=== PATIENT | male | born 2005 ===

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

== ENCOUNTER 2025-02-15 00:54 | Emergency (ER) | payer BC, MEDICAID, SELFPAY ==
[2025-02-15 00:54] VITALS: BP 102/77; PULSE 64; RESP 16; TEMP 36.4; O2SAT 94; BMI 34.7
--- NOTE | 2025-02-15 01:04 | ED_ITS ---
HPI - Altered Mental Status 2 General: Chief Complaint: Altered Mental Status Stated Complaint: AMS Time Seen by Provider: 02/15/25 00:54 Source: family and EMS Mode of arrival: EMS History of Present Illness: 19-year-old male has a history of TBI fr om a football injury 5 years ago. Per family patient denied was helped to the bathroom and then found him down unresponsive. He does have a history of seizures as well family states he is now back to his baseline. He is nonverbal but does moan and does respond. He was able to lift his left arm and left leg when I asked him to. He has right sided deficits from his previous injuries. Family did not witness the seizure but states this is how he is active before. He states has had some generalized weakness has gotten worse over the last few months denies any fever vomiting Related Data Previous Rx's ?Medication ?Instructions ?Recorded albuterol sulfate 90 mcg/actuation 2 inh inhalation Q6 H PRN shortness 03/16/22 aerosol inhaler of breath or wheezing #8.5 g kalyani Allergies Allergy/AdvReac Type Severity Reaction Status Date / Time No Known Allergies Allergy Verified 11/16/19 08:37 [facility] ED 2 PFSH: Medical History No pertinent family history Surgical History No pertinent past surgical history Social History Smoking and tobacco/nicotine status: never used tobacco/nicotine Physical Exam 2 Const: COMMON NORMALS: no acute distress; negative for patient oriented x3 HENMT: COMMON NORMALS: normocephalic and atraumatic HEAD & SCALP: n ormocephalic and atraumatic Eye: COMMON NORMALS: Equal, round and reactive pupils present and EOMs intact bilaterally PUPIL: Yes Equal, round and reactive pupils present Neck/C-Spine: COMMON NORMALS: supple Chest: COMMONS NORMALS: normal inspection of the chest Resp: COMMON NORMALS: normal respiratory effort and clear to auscultation bilaterally AUSCULTATION: clear to auscultation bilaterally Cardio: COMMON NORMALS: regular rate and regular rhythm RATE: regular rate RHYTHM: regular rhythm GI: COMMON NORMALS: Normal to inspection, nondistended, normoactive bowel sounds present, Soft to palpation and non-tender PALPATION: Yes Soft to palpation Extremity: COMMON NORMALS: normal to inspection Neuro: COMMON NORMALS: negative for patient oriented x3 CRANIAL NERVES: Yes CN normal except as noted OTHER: Patient currently at his baseline he does raise his left arm and leg when I ask him to he was able to fist bump when I asked. He is smiling on command. Does have right sided deficits that are old and unchanged Course 2 Vital Signs: Vital signs: Vital Signs Temperature 97.6 F 02/15/25 00:54 Pulse Rate 61 02/15/25 01:26 Respiratory Rate 12 02/15/25 01:26 Blood Pressure 106/67 02/15/25 01:26 Pulse Oximetry 94 02/15/25 01:26 Oxygen Delivery Me thod Room Air 02/15/25 00:54 MDM - Altered Mental Status Medical Decision Making Patient presents here with. Altered male status possibly had a seizure. Ever since has been here has been in his baseline in no acute distress no fever he has no signs of any infection or meningitis blood work is normal head CT showed no acute findings he has no signs of stroke here I did go over all these findings with his mother he is stable for discharge he does have a follow-up with his neurologist on February 21 he is to follow-up as scheduled return if worsening she understands agrees to plan Medical Records I reviewed the patient's medical records. Lab Data I reviewed the patient's lab results. 02/15/25 01:42 02/15/25 01:[address] 02/15/25 01:04 IMPRESSION: 1. Severe parenchymal volume loss/encephalomalacia of the left cerebral hemisphere with corresponding ventriculomegaly. Findings are favored to represent sequela of age-indeterminate, chronic appearing, large vascular territory infarct. Correlate with patient history. If clinical concern for acute ischemic pathology is present, MRI brain without contrast is warranted. 2. Postoperative changes from left frontoparietal craniotomy. Small crescent of hyperattenuation in the surgical bed favored to represent chronic postoperative exchange trouble shooter acute epidural hemorrhage. Correlate with patient history. 3. Otherwise, no acute intracranial hemorrhage. Laboratory Results WBC 6.72 10^3/uL (4.5-13.0) 02/15/25 01:42 RBC 5.14 10^6/uL (3.85-5.65) 02/15/25 01:42 Hgb 15.10 g/dL (13.2-15.6) 02/15/25 01:42 Hct 44.1 % (37-53) 02/15/25 01:42 MCV 85.8 fl (82-101) 02/15/25 01:42 MCH 29.4 pg (27-33) 02/15/25 01:42 MCHC 34.2 g/dL (30-55) 02/15/25 01:42 RDW 12.2 % (12.1-15.1) 02/15/25 01:42 Plt Count 194 10^3/cmm (157-399) 02/15/25 01:42 MPV 9.6 fL (7.4-10.4) 02/15/25 01:42 Neut % (Auto) 61.0 % 02/15/25 01:42 Lymph % (Auto) 30.2 % 02/15/25 01:42 Desha % (Auto) 7.7 % 02/15/25 01:42 Eos % (Auto) 0.9 % 02/15/25 01:42 Baso % (Auto) 0.1 % 02/15/25 01:42 Neut # (Auto) 4.09 10^3/uL (1.8-8.0) 02/15/25 01:42 Lymph # (Auto) 2.0 10^3/uL (1.5-6.5) 02/15/25 01:42 Desha # (Auto) 0.5 10^3/uL (0.2-0.9) 02/15/25 01:42 Eos # (Auto) 0.1 10^3/uL (0.0-0.8) 02/15/25 01:42 Baso # (Auto) 0.0 10^3/uL (0.0-0.1) 02/15/25 01:42 Nucleated RBC % (auto) 0 % 02/15/25 01:42 Nucleated RBCs # 0.0 /100WBC 02/15/25 01:42 Sodium 138 mmol/L (136-145) 02/15/25 01:42 Potassium 3.5 mmol/L (3.5-5.1) 02/15/25 01:42 Chloride 102 mmol/L (98-107) 02/15/25 01:42 Carbon Dioxide 27 mmol/L (22-29) 02/15/25 01:42 Anion Gap 12.5 (5-19) 02/15/25 01:42 BUN 10 mg/dL (6-20) 02/15/25 01:42 Creatinine 0.7 mg/dL (0.7-1.2) 02/15/25 01:42 GFR Calculation 145.3 mL/min (90-130) H 02/15/25 01:42 Glucose 110 mg/dL (65-115) 02/15/25 01:42 Calculated Osmolality 286 mOsm/kg (285-295) 02/15/25 01:42 Calcium 9.1 mg/dL (8.5-10.5) 02/15/25 01:42 Total Bilirubin 0.2 mg/dL (0.15-1.2) 02/15/25 01:42 AST 13 U/L (0-40) 02/15/25 01:42 ALT 21 U/L (0-41) 02/15/25 01:42 Alkaline Phosphatase 130 U/L (40-130) 02/15/25 01:42 Total Protein 7.1 g/dL (6.6-8.7) 02/15/25 01:42 Albumin 4.2 g/dL (3.5-5.2) 02/15/25 01:42 Globulin 2.9 g/dL (1.3-4.6) 02/15/25 01:42 All radiology interpretation(s) finalized by discharge EKG Data EKG 1: I personally reviewed and interpreted this EKG as follows: EKG interpretation date: 02/15/25 EKG interpretation time: 01:32 Interpretation: sinus melissa early repolarization qrs 105 qtc 380 Discharge Plan Discharge Patient Disposition: Home Clinical Impression: Altered mental status Condition: Stable Prescriptions: No Action albuterol sulfate 90 mcg/actuation HFA aerosol inhaler 2 inh inhalation Q6H PRN (Reason: shortness of breath or wheezing) Qty: 8.5 0RF Discharge Orders: Discharge ED (Routine); Ordered 02/15/25 Ordered By: Kayleigh Horner Referrals: Paramjit Burris [Primary Care Provider, Family Practice] Discharge Diet: Advance as tolerated Discharge Activity: Resume usual activity Patient Instructions: Altered Mental Status (ED) Print Language: Anguillan Coding Level of Care Code ED Ophthalmology Surgical Technician for Chano [place]
--- NOTE | 2025-02-15 01:04 | CTR_ITS ---
PROCEDURE INFORMATION: Exam: CT Head Without Contrast Exam date and time: 02/15/2025 1:24 AM Age: 19 years old Clinical indication: Altered mental status/memory loss; Prior surgery; Surgery date: 6+ months; Surgery type: 2x brain surgeries after a tbi; Additional info: AMS TECHNIQUE: Imaging protocol: Computed tomography of the head without contrast. Radiation optimization: All CT scans at this facility use at least one of these dose optimization techniques: automated exposure control; mA and/or kV adjustment per patient size (includes targeted exams where dose is matched to clinical indication); or iterative reconstruction. COMPARISON: CT head wo con* [id number] 07/05/2019 11:12 AM RADIATION DOSE METRICS: Total DLP (mGy-cm): 1086.48 FINDINGS: Brain: Since prior exam dated 07/05/2019, there is encephalomalacia of the left frontoparietal lobes and MCA distribution with corresponding severe left lateral ventriculomegaly and 3rd ventriculomegaly. Parenchymal volume loss is noted throughout the left cerebral hemisphere. No intracranial mass or mass effect is noted. No acute intracranial hemorrhage. Cerebral ventricles: See Brain finding. Paranasal sinuses: Visualized sinuses are unremarkable. No fluid levels. Mastoid air cells: Visualized mastoid air cells are well aerated. Bones: Postoperative changes from left frontoparietal craniectomy expected postsurgical changes are noted. Hyperattenuation in the surgical bed measuring no greater than 4 mm in depth (series 4, image 23) . This is findings favored to represent chronic postsurgical private branch exchange installer small volume epidural hemorrhage. Soft tissues: Unremarkable. Other findings: THIS REPORT CONTAINS FINDINGS THAT MAY BE CRITICAL TO PATIENT CARE. The findings were verbally communicated via telephone conference with LIANG CHRIS at 1:57 AM CDT on 02/15/2025. The findings were acknowledged and understood. CT/CT head wo con* [id number] IMPRESSION: 1. Severe parenchymal volume loss/encephalomalacia of the left cerebral hemisphere with corresponding ventriculomegaly. Findings are favored to represent sequela of age-indeterminate, chronic appearing, large vascular territory infarct. Correlate with patient history. If clinical concern for acute ischemic pathology is present, MRI brain without contrast is warranted. 2. Postoperative changes from left frontoparietal craniotomy. Small crescent of hyperattenuation in the surgical bed favored to represent chronic postoperative private branch exchange installer acute epidural hemorrhage. Correlate with patient history. 3. Otherwise, no acute intracranial hemorrhage.
[2025-02-15 01:26] VITALS: BP 106/67; PULSE 61; RESP 12; O2SAT 94
--- NOTE | 2025-02-15 01:32 | ECG_ITS ---
[facility] Test Date: 2025-02-15 Pat Name: Pradeep Mulligan Department: Room: Gender: Male Community Aide: : 2005 Requested By: Kayleigh Horner Order Number: [id number] Alicia MD: CLARI ESPAÑA Measurements Intervals [place] Rate: 56 P: 25 MS: 164 QRS: 61 QRSD: 105 T: 43 QT: 387 QTc: 377 Interpretive Statements SINUS BRADYCARDIA ST ELEVATION CONSISTENT WITH INJURY, PERICARDITIS, OR EARLY REPOLARIZATION [ST ELEVATION W/O NORMALLY INFLECTED T-WAVE] NONSPECIFIC ST & T-WAVE ABNORMALITY Compared to ECG 07/05/2019 09:33:09 ST (T wave) deviation now present Early repolarization now present T-wave abnormality now present Sinus rhythm no longer present Electronically Signed On 02-17-2025 21:37:40 CDT by CLARI ESPAÑA [email or web address]
[2025-02-15 01:55] LABS: Hematocrit 44.1 % (37-53); Hemoglobin 15.10 g/dL (13.2-15.6); Mean Corpuscular HGB Conc 34.2 g/dL (30-55); Mean Corpuscular Hemoglobin 29.4 pg (27-33); Mean Corpuscular Volume 85.8 fl (82-101); Nucleated Red Blood Cells % 0 %; Platelet Count 194 10^3/cmm (157-399); Red Blood Count 5.14 10^6/uL (3.85-5.65); White Blood Count 6.72 10^3/uL (4.5-13.0)
[2025-02-15 02:11] LABS: Alanine Aminotransferase 21 U/L (0-41); Albumin Level 4.2 g/dL (3.5-5.2); Alkaline Phosphatase 130 U/L (40-130); Anion Gap 12.5 (5-19); Aspartate Amino Transferase 13 U/L (0-40); Blood Urea Nitrogen 10 mg/dL (6-20); Calcium 9.1 mg/dL (8.5-10.5); Carbon Dioxide 27 mmol/L (22-29); Chloride 102 mmol/L (98-107); Creatinine Clr Calc Pharmacy 173.3200; Globulin 2.9 g/dL (1.3-4.6); Glucose 110 mg/dL (65-115); Osmolality Calculated 286 mOsm/kg (285-295); Potassium 3.5 mmol/L (3.5-5.1); Sodium 138 mmol/L (136-145); Total Protein 7.1 g/dL (6.6-8.7)
[2025-02-15 02:59] VITALS: PULSE 58; O2SAT 96
== END 2025-02-15 03:46 | disposition home or self-care (01) ==
PROVIDERS: Emergency Provider Emergency Medicine; PCP Family Medicine
DX: R41.82 Altered mental status, unspecified (principal)
CPT/HCPCS: 36415; 70450; 80053; 85025; 93005; 99284